=== PATIENT | male | born 1990 | race African-American/Black ===

== ENCOUNTER 2017-05-09 14:04 | Emergency (ER) | payer SELFPAY ==
[~2017-05-09] VITALS: Ht 172.7 cm; Wt 75.0 kg
[2017-05-09] MEDS ORDERED: LIDOCAINE HCL/EPINEPHRINE 1%-EPI 1:100,000 30 ML VIAL INFIL ONE (14:45)
[2017-05-09] MEDS ORDERED: HYDROCODONE/ACETAMINOPHEN 5/325MG TABLET PO ONE (15:00)
[2017-05-09] MEDS ORDERED: ONDANSETRON 4MG ODT PO ONE (15:00)
[2017-05-09] MEDS ORDERED: LIDOCAINE HCL 1%/EPI 1:200,000 30 ML VIAL IJ SCH (15:30)
[2017-05-09 17:53] VITALS: BP 102/80
== END 2017-05-09 17:45 | disposition home or self-care (01) ==
LOC: ER 15:28
DX: S61.411A Laceration without foreign body of right hand, initial encounter (principal); W25.XXXA Contact with sharp glass, initial encounter; Y93.89 Activity, other specified; Y92.89 Other specified places as the place of occurrence of the external cause; Y99.8 Other external cause status
CPT/HCPCS: 12002; 73130; 99284; Q0162; X7700; Z7610